=== PATIENT | female | born 1990 | race Two or more races ===

== ENCOUNTER 2017-11-08 19:28 | Emergency (ER) | payer OTHER ==
[~2017-11-08] VITALS: Ht 160 cm; Wt 62.6 kg
[2017-11-08 19:31] VITALS: BP 114/65
== END 2017-11-08 20:31 | disposition home or self-care (01) ==
LOC: ER 19:31
DX: O99.512 Diseases of the respiratory system complicating pregnancy, second trimester (principal); J01.90 Acute sinusitis, unspecified; H66.92 Otitis media, unspecified, left ear; Z3A.15 15 weeks gestation of pregnancy
CPT/HCPCS: 99283; A4606; Z7610

== ENCOUNTER 2021-12-15 00:43 | Emergency (ER) | payer MEDICAID, OTHER ==
[~2021-12-15] VITALS: Ht 162.6 cm; Wt 65.8 kg
--- NOTE | 2021-12-15 00:57 | NUR ---
URINE COLLECTED AND SENT TO LAB
--- NOTE | 2021-12-15 00:57 | NUR ---
BIBS C/O "SHARP PELVIC PAIN" X3 DAYS. PATIENT ALERT AND ORIENTED X3. AMBULATORY WITH NON LABORED BREATHING IN BED 03 ON MONITOR AND POX.
[2021-12-15 01:39] LABS: BILIRUBIN,URINE NEGATIVE (NEGATIVE); COLOR,URINE YELLOW (YELLOW); LEUKOCYTE ESTERASE ,URINE TRACE (NEGATIVE); NITRITE, URINE NEGATIVE (NEGATIVE); PROTEIN,URINE NEGATIVE (NEGATIVE); UGLUCOSE NEGATIVE (NEGATIVE); UROBILINOGEN,URINE 0.2 EU/dL (0.2)
[2021-12-15 01:43] LABS: BACTERIA,URINE None seen /HPF (None Seen); RBC,URINE 0-2 /HPF (0-2); SQUAMOUS EPITHELIAL CELL,UR Few /HPF (None Seen); WBC,URINE 0-2 /HPF (0-3)
[2021-12-15] MEDS ORDERED: KETO10TA2 PO (02:59)
--- NOTE | 2021-12-15 03:05 | NUR ---
Patient discharged to home in stable condition. Written and verbal after care instructions given. Patient verbalizes understanding of instruction.
[2021-12-15 03:07] VITALS: BP 155/85
== END 2021-12-15 03:08 | disposition home or self-care (01) ==
LOC: ER 00:57
DX: R10.2 Pelvic and perineal pain (principal); T83.89XA Other specified complication of genitourinary prosthetic devices, implants and grafts, initial encounter
CPT/HCPCS: 81001; 84703-TC